=== PATIENT | male | born 1960 | race Caucasian/White ===

== ENCOUNTER 2017-01-28 08:21 | Day surgery (SDC) | payer OTHER ==
[~2017-01-28] VITALS: Ht 167.6 cm; Wt 66.7 kg
[2017-01-28] VITALS (9 sets, daily range): BP systolic 103–127; BP diastolic 49–80; PULSE 59–85; RESP 10–15; O2SAT 96–99
[~2017-01-28 08:21] MED LIST: Bupivacaine Liposome 1.3% 20 mL Inj INFILTRATE ONE; Bupivacaine Liposome 1.3% 20 mL Inj INFILTRATE SCH; CeFAZolin Inj 2 GM in IV Premix 1 EACH IV ONE; IBUP200C PO; LATA2.5D6 OP; Lactated Ringer's 1,000 ML IV ONE; Tranexamic Acid 100 mg/mL 10 mL Inj IV ONE; Vancomycin Inj 1,000 MG in IV Premix 1 EACH IV ONE
[2017-01-28] MEDS ORDERED: Ondansetron 2 mg/mL 2 mL Inj ONE (08:22)
[2017-01-28] MEDS ORDERED: fentaNYL-PF 50 mCg/mL 2 mL Inj ONE (08:22)
[2017-01-28] MEDS ORDERED: HYDROmorphone 2 mg/mL Inj ONE (08:22)
[2017-01-28] MEDS ORDERED: Propofol 10,000 mCg/mL 20 mL Inj ONE (08:22)
[2017-01-28] MEDS ORDERED: Glycopyrrolate 0.2 MG/ML 1mL Inj ONE (08:22)
[2017-01-28] MEDS ORDERED: EPHEDrine/NS 5 mg/mL 5 mL Syringe ONE (08:22)
[2017-01-28] MEDS ORDERED: Dexamethasone 4 mg/mL Inj ONE (08:22)
[2017-01-28] MEDS ORDERED: Lactated Ringer's 1,000 ML IV ONE (09:16)
[2017-01-28] MEDS ORDERED: Lactated Ringer's 500 ML IV PRN (10:07)
[2017-01-28] MEDS ORDERED: 0.9% Sodium Chloride 100 ML ONE (10:07)
[2017-01-28] MEDS ORDERED: Lactated Ringer's 1,000 ML IV SCH (10:07)
--- NOTE | 2017-01-28 10:07 | PCM.HPANE ---
Patient Data Surgeon Admitting Provider: Attending Provider:Jerome Patton MD Primary Care Physician:Joey Other Provider:Raquel Delacruz Anesthesia Reason for Visit Right Knee Arthritis Ht/WT & BMI Height (Feet): 5 Height (Inches): 6.00 Weight (Kilograms): 66.700 Body Mass Index 23.00 Allergies Coded Allergies: No Known Allergies (Unverified , 01/24/17) Past Anesthesia History Anesthesia History: Denies:: Anesthesia Reactions Diabetes History Hx Diabetes?: No Medications Hypertension Medication: No Home Meds Incl Beta Bob: No Reported Medications Latanoprost 2.5 Ml Drops1 Gtt OP HS #1 BOTTLE 01/24/17 Ibuprofen 200 Mg [id number] Mg PO QID PRN For Pain Ref 0 01/24/17 History History of ENT Problems?: No HEENT History: Positive for:: Glaucoma (using latanoprost eye gtts per emr) Hx of Heart Problems?: No Hx of Respiratory Problem?: No Respiratory History: Denies:: Oxygen Administration Use of C-PAP Machine Hx Neurologic Problems?: No Hx of GI Problems?: No Hx of Problems?: No Male Hx: Denies:: Prostate Problems Hx Musculoskeletal Problems?: Yes Musculoskeletal History: Positive for:: Musculoskeletal Trauma (right knee current admission problem) Osteoarthritis Denies:: Joint Replacement Hx of Psycho/Social Problems?: No Hx Surgeries?: Yes (knee arthroscopy) Hx Any Other Health Problems?: Yes Other History: Denies:: Cancer Thyroid Disease Hx Diabetes: No Hx Alcohol Use: YesHx Substance Use: NoHave You Smoked inLast 12 mo: No Stop/Bang S-Snoring: Do You Snore Loudly: No T-Tired: feel tired, fatigued: No O-Obsered: Observed not breath: No P-Blood Pressure: treated: No B- Body Mass Index > 35 kg/m2: No A- Age over 50: Yes N- Neck Large Circumference: No G- Gender Male: Yes GRAZYNA Total Score: 2 GRAZYNA Risk Assessment: Low Risk, <3 Yes Risk Assessment Category Category 1A: Patient has history of documented sleep apnea, and HAS NOT received any narcotic, sedative or anesthesia administration during this stay. Category 1B: Patient has history of documented sleep apnea, and HAS received any narcotic , sedative or anesthesia administration during this stay Category 2: Patient has SUSPECTED Obstructive Sleep Apnea, and HAS received any narcotic , sedative or anesthesia administration during this stay. Category 3: Patient has SUSPECTED Obstructive Sleep Apnea and HAS NOT received narcotic, sedative or anesthesia administration during this stay. Category 4: Outpatient in Procedural Areas with known sleep apnea or who screen positive for High Risk via the STOP/BANG questionnaire. Exam Exam Vital Signs Vital Signs Date Time Temp Pulse Resp B/P Pulse Ox O2 Delivery O2 Flow Rate FiO2 01/28/17 08:48 36.1 64 14 127/80 98 Room Air General Appearance: Alert, Oriented X3, Cooperative, No Acute Distress HEENT/AIRWAY: MP 1 Lungs: Clear to Auscultation, Normal Air Movement Heart: Exam Unremarkable, Regular Rate/Rhythm, No Murmurs/Rubs/Gallops Meds/Labs/Diagnostics Admission Meds Current Medications Lactated Ringer's (Lr) 1,000 ml @ ud STK-MED ONCE IV Last administered on 01/28t 09:16; Start 01/28/17 at 09:16; Stop 01/28/17 at 09:17; Status DC Plan Impression Patient chart reviewed, patient interviewed and anesthestic plan with risks, benefits, and alternatives discussed, and informed consent obtained. NPO Status: 01/27@1999 ASA Physical Status: ASA1 Normal Healthy Anesthetic Plan: GA Bene/Risks/Altern/Consents: Yes HP Complete Prior to Induction: Yes Trent Ramirez MD Jan 28, 2017 10:07
[2017-01-28] MEDS ORDERED: Phenylephrine 10,000 mCg/mL Inj IVPUSH PRN (10:10)
[2017-01-28] MEDS ORDERED: Labetalol 5 mg/mL 4 mL Inj IV PRN (10:10)
[2017-01-28] MEDS ORDERED: Ondansetron 2 mg/mL 2 mL Inj IVPUSH PRN (10:10)
[2017-01-28] MEDS ORDERED: EPHEDrine Sulfate 50 mg/mL Inj IVPUSH PRN (10:10)
[2017-01-28] MEDS ORDERED: Atropine 0.4 mg/mL Inj IVPUSH PRN (10:10)
[2017-01-28] MEDS ORDERED: MetoCLOpramide 5 mg/mL 2 mL Inj IVPUSH PRN (10:10)
[2017-01-28] MEDS ORDERED: fentaNYL-PF 50 mCg/mL 2 mL Inj IVPUSH PRN (10:10)
[2017-01-28] MEDS ORDERED: Gentamicin 40 mg/mL 2 mL Inj IRRIGATION ONE (10:27)
[2017-01-28] MEDS ORDERED: Bupivacaine-MPF 0.25%/EPI 30 mL Inj INJ ONE (10:27)
[2017-01-28] MEDS ORDERED: Bupivacaine Liposome 1.3% 20 mL Inj INFILTRATE ONE (10:28)
[2017-01-28] MEDS ORDERED: HYDROmorphone 0.5 mg/0.5 mL iSecure Syringe ONE ×2 (11:42→11:57)
[2017-01-28] MEDS: HYDROmorphone 1 mg/mL Inj IVPUSH PRN ×2 (11:45→12:00)
--- NOTE | 2017-01-28 12:04 | DRSVH ---
PROCEDURE: X-RAY RIGHT KNEE, ONE OR TWO VIEWS ([id number]) INDICATIONS: POST OP TECHNIQUE: 2 views of the knee were acquired. COMPARISON: [facility], [place], XR KNEE ARTHRITIC SERIES RT, 12/11/2016, 8:53. [facility], [place], KNEE SERIES RT, 02/03/2016, 14:22. FINDINGS: Expected postoperative changes of the right knee are present related to a lateral tibial femoral comp artment arthroplasty. The metallic components along the lateral femoral condyle and lateral tibial p lateau are appropriately seated without periprosthetic fracture evident. Expected postoperative weston ges within the overlying soft tissues are noted with edema, effusion, and soft tissue air. A drainag e catheter is incidentally noted. No unexpected radiopaque foreign bodies are evident. No dislocati ons are appreciated. Degenerative changes within the patellofemoral compartment are noted. IMPRESSION: Expected postoperative changes related to a lateral tibial femoral compartment hemiarthro plasty. No fractures. Dictated by: Micah Del Angel M.D. on 01/28/2017 at 11:00 Approved by: Micah Del Angel M.D. on 01/28/2017 at 11:02
[2017-01-28] MEDS ORDERED: oxyCODONE-Acetamin 5-325 mg Tablet PO ONE ×3 (12:21→13:10)
--- NOTE | 2017-01-28 12:37 | PCM.ANEP1 ---
Post Anesthesia Phase 1 PACU Phase 1 Assessment Vital Signs Vital Signs Date Time Temp Pulse Resp B/P Pulse Ox O2 Delivery O2 Flow Rate FiO2 01/28/17 12:17 36.1 73 13 111/63 97 Room Air 01/28/17 12:10 36.1 71 12 116/59 97 Room Air 01/28/17 12:00 75 15 117/62 96 Room Air 01/28/17 11:45 36.4 79 14 120/64 98 Room Air 01/28/17 11:40 85 14 115/58 99 Simple Mask 7 01/28/17 11:35 71 10 112/60 98 Simple Mask 7 01/28/17 11:30 36.1 103/49 01/28/17 08:48 36.1 64 14 127/80 98 Room Air Anesthetic Administered: GA Level of Alertness: Awake, talking [place]'s with Equal Strength: Yes Pain: No Nausea or Vomiting: No Oxygen Delivery: Simple Mask Lungs: Clear to Auscultation, Normal Air Movement Trent Ramirez MD Jan 28, 2017 12:37
--- NOTE | 2017-01-28 12:38 | PCM.ANEP2 ---
Post Anesthesia Evaluation ASA/CMS Post Anesthesia VS in Patient's Normal Range?: Yes Resp Stable; Airway Patent?: Yes CV Function & Hydration Stable: Yes Mental Status Recovered?: Yes Pain control Satisfactory?: Yes N/V Control Satisfactory?: Yes Additional Comments Comfortable, eating in phase II PACU. Discharge likely soon. Trent Ramirez MD Jan 28, 2017 12:37
[2017-01-28] MEDS ORDERED: Bupivacaine Liposome 1.3% 20 mL Inj INFILTRATE SCH (13:10)
--- NOTE | 2017-01-29 01:05 | OP ---
[address] [address] OPERATIVE REPORT PATIENT: ROBBIE CEE : 1960 MR#: [id number] ADMIT: 01/28/2017 JOB ID: [id number] DATE OF SURGERY: 01/28/2017 PREOPERATIVE DIAGNOSIS(ES): Advanced lateral compartment osteoarthritis creating significant disability, and unresponsive to conservative therapy. POSTOPERATIVE DIAGNOSIS(ES): Advanced lateral compartment osteoarthritis creating significant disability, and unresponsive to conservative therapy. PROCEDURE: Lateral compartment unicompartmental knee arthroplasty. SURGEON: Jerome Patton MD TERMINAL OPERATIONS MANAGER: Kay Orta PA-C Photoengraving Proofer required due to the complexity of the operation. INDICATIONS: This gentleman understands and accepts the potential for risks and complications, which include, but is not limited to, infection, thromboembolic, neurovascular events, as well as potential for progressive arthritis in unresurfaced compartments and implant failure. Understanding this, he wishes to proceed. DESCRIPTION OF PROCEDURE: The patient was prepped and draped in usual sterile fashion. An anterolateral approach was made to the knee. Dissection was carried down. Frontal bossing was removed and a patellar osteophyte was removed. The extramedullary guide was assembled and the distal femoral cut was made. The femur was sized to an E chamfer cutting block, fixed in appropriate position. Rotation, drill holes and chamfer cuts were made. The tibia was sized to a 4, provisionally fixed. Drill holes were made after trial reductions confirming an 8 mm poly with excellent flexion extension balance and appropriate alignment. All meniscal tissue and osteophytes were removed from the knee. The knee was irrigated with a large quantity of sterile irrigant. Pressurized lavage was followed by pressurized cementation. Excess cement removed during the curing process. Final construct assembled. Tourniquet let down. Hemostasis achieved. A deep drain was placed. Closure with #2 Quill deep, followed by 2-0 Vicryl, 3-0, and a 4-0 intracuticular stitch. The patient tolerated the procedure well. There were no complications.
== END 2017-01-28 23:59 | disposition home or self-care (01) ==
LOC: SAS 08:21
PROVIDERS: ATTEND Orthopaedic Surgery
DX: M17.11 Unilateral primary osteoarthritis, right knee (principal); M25.561 Pain in right knee